=== PATIENT | male | born 1975 | race Hispanic/Latino ===

== ENCOUNTER 2017-10-30 07:30 | Emergency (ER) | payer OTHER ==
[2017-10-30 07:36] VITALS: BP 120/82; PULSE 71; TEMP 98.1; O2SAT 98
[2017-10-30] MEDS ORDERED: Dexamethasone 4 mg/1 ml IM STA (07:58)
[2017-10-30] MEDS ORDERED: Naproxen 550 mg Tab PO STA (07:58)
--- NOTE | 2017-10-30 08:00 | C.PDOC ---
History Of Present Illness 42 yo male c/o left sided back pain radiating down the left leg for 5 days. Pt notes he went to picker feeder an 18mo old baby and as he was lifting the baby up he felt a shooting pain in his back. Pt has a h/o of herniated disc surgery 25 yrs ago and gets intermittent back pain since then. He went to the ER in [place] two days ago, was prescribed Flexeril and Motrin but symptoms persist. Denies change in sensation, urinary or bowel incontince, trauma, change in gait or fevers. Time Seen by Provider: 10/30/17 07:38 Chief Complaint (Nursing): Back Pain History Per: Patient History/Exam Limitations: no limitations Onset/Duration Of Symptoms: Days Current Symptoms Are (Timing): Still Present Quality Of Discomfort: "Pain" Past Medical History Vital Signs: Last Vital Signs Temp 98.1 F 10/30/17 07:33 Pulse 71 10/30/17 07:33 Resp 16 10/30/17 07:33 BP 120/82 10/30/17 07:33 Pulse Ox 98 10/30/17 08:04 Family History: States: Unknown Family Hx - Social History Hx Alcohol Use: Yes Hx Substance Use: No - Immunization History Hx Tetanus Toxoid Vaccination: No Hx Influenza Vaccination: No Hx Pneumococcal Vaccination: No Review Of Systems Except As Marked, All Systems Reviewed And Found Negative. Musculoskeletal: Positive for: Back Pain Physical Exam - Physical Exam Appears: Well, Non-toxic, No Acute Distress Skin: Normal Color, Warm, Dry Head: Atraumatic, Normacephalic Eye(s): bilateral: Normal Inspection, EOMI Nose: Normal Neck: Normal, Normal ROM, Supple Chest: Symmetrical Respiratory: No Accessory Muscle Use Gastrointestinal/Abdominal: Normal Exam, Soft, No Tenderness Back: No CVA Tenderness, No Vertebral Tenderness, Paraspinal Tenderness ((+) left lower paralumbar/sacral tenderness), Straight Leg Raising (45) Extremity: Normal ROM Pulses: Left Dorsalis Pedis: Normal, Right Dorsalis Pedis: Normal Neurological/Psych: Oriented x3, Normal Speech, Normal Motor, Normal Sensation Gait: Steady ED Course And Treatment O2 Sat by Pulse Oximetry: 98 Progress Note: Pt was given Decadron, naprosyn and Lidoderm patch. Pt declined XR. On reassessment, patient resting comfortably, back pain has improved, no fever, no bony tenderness, no numbness, no weakness, no abdominal pain. Patient is ambulatory in the emergency department with no discomfort. Patient was instructed to follow up with physician/clinic in 1-2 days for further evaluation or return to ED if symptoms persist or worsen. Disposition - Disposition Referrals: Marlene Humphreys MD [Staff Provider] - Disposition: HOME/ ROUTINE Disposition Time: 08:00 Condition: STABLE Additional Instructions: Follow up with your PMD in 1-2 days. Return to ER if symptoms persist or worsen. Prescriptions: Lidocaine 5% [Lidoderm] 1 patch TOP DAILY PRN #5 patch PRN Reason: Pain, Moderate (4-7) traMADol [Ultram] 50 mg PO Q8 #20 tab Instructions: Sciatica (DC) Forms: [facility] (Bangladeshi) - Clinical Impression Clinical Impression: Low back strain
[2017-10-30] MEDS ORDERED: Naproxen 550 mg Tab PO ONE (08:15)
[2017-10-30] MEDS ORDERED: Lidocaine 5% Patch TD ONE (08:15)
[2017-10-30 09:30] VITALS: RESP 18
[2017-10-30] MEDS ORDERED: Lidocaine 5% Patch TD SCH (10:00)
== END 2017-10-30 09:30 | disposition home or self-care (01) ==
LOC: C.ER 07:30
DX: S39.012D Strain of muscle, fascia and tendon of lower back, subsequent encounter (principal); X58.XXXD Exposure to other specified factors, subsequent encounter
CPT/HCPCS: 96372; 99283; J1100